=== PATIENT | female | born 1980 | race Caucasian/White ===

== ENCOUNTER 2021-06-19 00:07 | Emergency (ER) | payer BC ==
[2021-06-19 00:28] LABS: HEMOGLOBIN 13.3 gm/dl (12.3-15.3); RED BLOOD COUNT 4.53 M/UL (4.00-5.10); WHITE BLOOD COUNT 11.7 K/UL (4.5-11.0)
[2021-06-19 00:53] LABS: BUN/CREATININE RATIO 16 (0-10)
[2021-06-19] MEDS ORDERED: FLOMAX 0.4 MG0.4 MG PO (03:09)
[2021-06-19] MEDS ORDERED: LODINE CAP 300300 MG PO (03:09)
[2021-06-19] MEDS ORDERED: ZOFRAN ODT 4 MG4 MG PO (03:09)
== END 2021-06-19 03:29 | disposition home or self-care (01) ==
LOC: ER1 00:07
PROVIDERS: Physician Assistant
DX: N13.2 Hydronephrosis with renal and ureteral calculous obstruction (principal); Z90.710 Acquired absence of both cervix and uterus; Z85.3 Personal history of malignant neoplasm of breast
CPT/HCPCS: 80053; 81001; 83690; 85025; 87086; 99284; Q9967